=== PATIENT | male | born 1945 | race Caucasian/White ===

== ENCOUNTER 2021-04-17 09:28 | Inpatient (IN) ==
[2021-04-17] MEDS ORDERED: Nitroglycerin 0.4 MG TAB.SUBL SL PRN (15:21)
[2021-04-17] MEDS ORDERED: Melatonin 3 MG TABLET PO PRN (15:21)
[2021-04-17] MEDS ORDERED: Albuterol 2.5 MG/3 ML NEBULIZER IH PRN (15:21)
[2021-04-17] MEDS ORDERED: Diphenoxylate/Atropine 1 TAB TABLET PO PRN (15:21)
[2021-04-17] MEDS ORDERED: *HR* Dextrose 50 % in Water (Vial) 50 ML VIAL IVP PRN (18:39)
[2021-04-17] MEDS ORDERED: D5% in Water 1,000 ML IVC PRN (18:39)
[2021-04-17] MEDS ORDERED: Dextrose Gel 15 GM/37.5 ML TUBE PO PRN ×2 (18:39)
[2021-04-17 20:47] LABS: Bilirubin,Urine Negative (Negative); Blood,Urine Large (Negative); Clarity,Urine Clear (Clear); Color,Urine Yellow (Yellow); Glucose,Urine (UA) Normal (Normal); Ketones,Urine Negative (Negative); Leukocyte Esterase,Urine Negative (Negative); Nitrite,Urine Negative (Negative); PH,Urine 5.5 pH Units (5.0-8.0); Protein,Urine 100 mg/dL (Neg-Trace); Urobilinogen,Urine Normal (Normal)
[2021-04-17] MEDS: PrednisoLONE Acetate 1% Opth 5 ML BOTTLE LEFT EYE SCH (20:55)
[2021-04-17] MEDS: Benzonatate 100 MG CAPSULE PO SCH (20:55)
[2021-04-17] MEDS: Apixaban 5 MG TABLET PO SCH (20:55)
[2021-04-17] MEDS: Nystatin SUSP 5 ML UD.LIQ PO SCH (20:55)
[2021-04-17 21:42] LABS: Bacteria,Urine Few per hpf (None-Few); RBC,Urine 15-30 per hpf (0-3); Squamous Epithelial Cell,Urine Few per hpf (None-Few); Uric Acid Crystals,Urine Present per hpf; WBC,Urine 0-3 per hpf (0-3)
[2021-04-17] MEDS: Budesonide/Formoterol 80/4.5 1 PUFF INH IH SCH (21:55)
[2021-04-18] MEDS: Insulin LISPRO 300 UNITS/3 ML VIAL SUBQ SCH ×4 (00:28→16:31)
[2021-04-18] MEDS: Magic Mouthwash 10 ML UD Cup PO SCH ×3 (05:38→16:23)
[2021-04-18 07:18] LABS: Basophils % 0.1 %; Eosinophils % 0.1 %; Hematocrit 27.4 % (37.5-50.1); Hemoglobin 8.8 g/dL (12.9-16.9); Immature Granulocytes % 0.8 % (0-4); Lymphocytes # 0.5 K/mcL (0.6-4.6); Lymphocytes % 5.2 %; Mean Corpuscular HGB Conc 32.1 g/dL (31.6-35.5); Mean Corpuscular Hemoglobin 28.2 pg (28.0-33.3); Mean Corpuscular Volume 87.8 fL (83.0-100.0); Mean Platelet Volume 9.8 fL (9.4-12.4); Monocytes # 0.5 K/mcL (0.0-1.3); Monocytes % 5.6 %; Neutrophils # 7.6 K/mcL (1.6-8.9); Platelet Count 357 K/mcL (140-400); Red Blood Count 3.12 M/mcL (4.19-5.50); Red Cell Distribution Width 14.3 % (11.5-14.5); Segmented Neutrophils % 88.2 %; White Blood Count 8.6 K/mcL (4.3-11.1)
[2021-04-18 07:35] LABS: Albumin 2.5 g/dL (3.5-5.7); Albumin/Globulin Ratio 1.1 (1.1-2.2); Bilirubin,Total 0.4 mg/dL (0.3-1.0); Calcium 7.8 mg/dL (8.6-10.3); Globulin 2.3 g/dL (2.4-3.5); Potassium 3.1 mEq/L (3.5-5.1); Total Protein 4.8 g/dL (6.4-8.9)
[2021-04-18] MEDS ORDERED: ACETYLCYSTEINE 500 MG PO SCH (09:00)
[2021-04-18] MEDS ORDERED: DilTIAZem CD (24hr) 120 MG CAP.ER.24H PO SCH (09:00)
[2021-04-18] MEDS: Budesonide/Formoterol 80/4.5 1 PUFF INH IH SCH ×2 (10:01→21:37)
[2021-04-18] MEDS: Benzonatate 100 MG CAPSULE PO SCH ×2 (10:16→20:25)
[2021-04-18] MEDS: Metoprolol XL (24 HR) Succ 25 MG TAB.ER.24H PO SCH (10:17)
[2021-04-18] MEDS: Loratadine 10 MG TABLET PO SCH (10:17)
[2021-04-18] MEDS: Nystatin SUSP 5 ML UD.LIQ PO SCH ×4 (10:17→20:27)
[2021-04-18] MEDS: predniSONE 20 MG TABLET PO SCH (10:17)
[2021-04-18] MEDS: Apixaban 5 MG TABLET PO SCH ×2 (10:18→20:26)
[2021-04-18] MEDS: PrednisoLONE Acetate 1% Opth 5 ML BOTTLE LEFT EYE SCH (10:22)
[2021-04-18] MEDS: ACETYLCYSTEINE 500 MG PO SCH ×3 (10:22→20:24)
[2021-04-18] MEDS: PREDNISOLONE ACETATE 1% OP SCH ×2 (16:23→20:24)
[2021-04-18] MEDS: OPTH OP SCH ×2 (16:23→20:24)
[2021-04-18] MEDS: Fluconazole 100 MG TABLET PO SCH (16:24)
[2021-04-19] MEDS: Insulin LISPRO 300 UNITS/3 ML VIAL SUBQ SCH ×4 (03:09→17:59)
[2021-04-19] MEDS: Nystatin SUSP 5 ML UD.LIQ PO SCH ×4 (08:23→23:18)
[2021-04-19] MEDS: Apixaban 5 MG TABLET PO SCH ×2 (08:23→23:17)
[2021-04-19] MEDS: Metoprolol XL (24 HR) Succ 25 MG TAB.ER.24H PO SCH (08:23)
[2021-04-19] MEDS: predniSONE 20 MG TABLET PO SCH (08:23)
[2021-04-19] MEDS: Loratadine 10 MG TABLET PO SCH (08:24)
[2021-04-19] MEDS: Benzonatate 100 MG CAPSULE PO SCH ×2 (08:24→23:18)
[2021-04-19] MEDS: Fluconazole 100 MG TABLET PO SCH (08:24)
[2021-04-19] MEDS ORDERED: DilTIAZem CD (24hr) 180 MG CAP.ER.24H PO SCH (09:00)
[2021-04-19] MEDS: Budesonide/Formoterol 80/4.5 1 PUFF INH IH SCH ×2 (10:12→22:11)
[2021-04-19] MEDS: Magic Mouthwash 10 ML UD Cup PO SCH ×3 (10:58→17:59)
[2021-04-19] MEDS: PREDNISOLONE ACETATE 1% OP SCH ×3 (11:02→23:18)
[2021-04-19] MEDS: OPTH OP SCH ×3 (11:02→23:18)
[2021-04-19] MEDS: ACETYLCYSTEINE 500 MG PO SCH ×3 (11:03→23:18)
[2021-04-19] MEDS ORDERED: 0.9 % Sodium Chloride 1,000 ML IVC SCH (12:30)
[2021-04-19 12:32] LABS: Hemoglobin 7.6 g/dL (12.9-16.9); Mean Corpuscular HGB Conc 31.7 g/dL (31.6-35.5); Mean Corpuscular Hemoglobin 28.3 pg (28.0-33.3); Mean Corpuscular Volume 89.2 fL (83.0-100.0); Mean Platelet Volume 9.9 fL (9.4-12.4); Platelet Count 411 K/mcL (140-400); Red Blood Count 2.69 M/mcL (4.19-5.50); Red Cell Distribution Width 14.6 % (11.5-14.5); White Blood Count 14.5 K/mcL (4.3-11.1)
[2021-04-19 12:35] LABS: INR 1.6; Prothrombin Time 18.6 Seconds (9.4-12.1)
[2021-04-19 12:38] LABS: Activated Partial Thrombo Time 23.1 Seconds (26.0-36.0)
[2021-04-19 13:03] LABS: Albumin 2.3 g/dL (3.5-5.7); Bilirubin,Total 0.5 mg/dL (0.3-1.0); Calcium 7.7 mg/dL (8.6-10.3); Globulin 2.2 g/dL (2.4-3.5); Magnesium 1.9 mg/dL (1.6-2.6); Potassium 4.1 mEq/L (3.5-5.1); Total Protein 4.5 g/dL (6.4-8.9)
[2021-04-19] MEDS ORDERED: *HR* LORazepam 2 MG/ML VIAL IVP ONE (18:22)
[2021-04-19 19:24] LABS: ABG Base Excess -4 mEq/L (-2 to 3); ABG HCO3 18 mEq/L (21-27); ABG Oxygen Saturation 99 % (95-98); ABG PCO2 21 mmHg (35-45); ABG PH 7.53 pH Units (7.32-7.45); ABG PO2 109 mmHg (85-104); ABG TCO2 18 mEq/L (20-26)
[2021-04-19 19:30] LABS: Calcium 7.5 mg/dL (8.6-10.3); Potassium 3.8 mEq/L (3.5-5.1)
[2021-04-19] MEDS ORDERED: Insulin LISPRO 300 UNITS/3 ML VIAL SUBQ SCH (19:41)
[2021-04-19] MEDS: *HR* LORazepam 2 MG/ML VIAL IVP PRN (19:51)
[2021-04-19] MEDS ORDERED: haloperidoL 1 MG TABLET PO PRN (21:30)
[2021-04-20] MEDS ORDERED: *HR* LORazepam 2 MG/ML VIAL IVP ONE (00:25)
[2021-04-20] MEDS: *HR* LORazepam 2 MG/ML VIAL IVP PRN (01:05)
[2021-04-20 01:07] LABS: Hemoglobin 6.6 g/dL (12.9-16.9); Mean Corpuscular HGB Conc 31.4 g/dL (31.6-35.5); Mean Corpuscular Hemoglobin 28.3 pg (28.0-33.3); Mean Corpuscular Volume 90.1 fL (83.0-100.0); Mean Platelet Volume 9.8 fL (9.4-12.4); Platelet Count 390 K/mcL (140-400); Red Blood Count 2.33 M/mcL (4.19-5.50); Red Cell Distribution Width 14.9 % (11.5-14.5)
[2021-04-20 01:59] VITALS: BP 159/69
[2021-04-20 14:03] LABS: ABG PCO2 < 13 mmHg (35-45); ABG PH 7.67 pH Units (7.32-7.45); ABG PO2 97 mmHg (85-104)
[2021-04-23] MEDS ORDERED: Ergocalciferol (VIT D2) 50,000 UNIT (1.25MG) CAP PO SCH (09:00)
== END 2021-04-20 03:10 | disposition short-term general hospital (02) | DRG 392 ==
LOC: INPGRE 15:01
PROVIDERS: ADMIT Family Medicine; ATTEND Family Medicine